=== PATIENT | born 1990 | race Caucasian/White ===

== ENCOUNTER 2025-05-18 17:39 | Emergency (ER) | payer SELFPAY ==
[2025-05-18] VITALS (10 sets, daily range): BP systolic 117–136; BP diastolic 47–78; PULSE 80–98; RESP 13–28; TEMP 37.2; O2SAT 98–100
--- NOTE | 2025-05-18 17:30 | RT.EKG_ITS ---
APPROVED REPORT Exam: Resting ECG Reason for Exam: chest pain Patient Location: E HR:76 bpm ECG Measurements Heart Rate 76 AXIS AL 123 P 61 QRSd 82 QRS 80 QT 345 T 68 QTc 390 Conclusion Sinus rhythm, rate 76 No interval abnormalities No STEMI No priors available for comparison
[2025-05-18 18:15] LABS: Abs Immature Grans 0.05 10^3/uL; HCT 39.7 %; HGB 12.9 g/dL; Immature Grans % 0.5 %; MCH 26.9 pg; MCHC 32.5 %; MCV 83 fL; MPV 9.2 fL; Platelet Count 224 10^3/uL; RBC 4.79 10^6/uL; RDW 14.2 %; RDW-SD 43.3 fL; WBC 10.59 10^3/uL
--- NOTE | 2025-05-18 18:15 | DI.RAD_ITS ---
Exam(s) XR CHEST 2V PA LATERAL EXAM: XR CHEST 2V PA LATERAL CLINICAL HISTORY: chest pain TECHNIQUE: 2D digital imaging was performed. Two views. COMPARISON: No exams were available for comparison FINDINGS: HEART: Normal size. Aorta: Not dilated. PULMONARY VASCULATURE: Normal. MEDIASTINUM: Unremarkable. LUNGS: Clear. PLEURAL SPACE: No pleural effusion or pneumothorax. BONE:Unremarkable for age. SOFT TISSUES: Unremarkable. IMPRESSION: No acute abnormality. DATA REPOSITORY: RADIATION DOSE DELIVERED:
[2025-05-18 18:30] LABS: Lipase 26 U/L
[2025-05-18] MEDS: Normal Saline 1,000 ML 1000 ML IV (18:30)
[2025-05-18] MEDS: Ondansetron 4 MG/2 ML VIAL IVP (18:31)
[2025-05-18] MEDS: Ketorolac 15 MG/ML VIAL 7.5 MG IVP (18:31)
[2025-05-18 18:32] LABS: ALT 96 U/L; AST 67 U/L; Albumin 4.1 g/dL; Alkaline Phosphatase 49 U/L; Anion Gap 7.3 mmol/L; BUN 14 mg/dL; Bilirubin, Total 0.30 mg/dL; CO2 28.7 mmol/L; Calcium 9.6 mg/dL; Chloride 108 mmol/L; Glucose 111 mg/dL; Potassium 3.7 mmol/L; Sodium 144 mmol/L; Total Protein 6.8 g/dL
[2025-05-18 18:34] LABS: Troponin I < 3 ng/L
[2025-05-18] MEDS: Buprenorphine/Naloxone 4 mg/1 mg FILM 1 EACH SL ×2 (19:34→20:44)
[2025-05-18 19:36] LABS: Troponin I < 3 ng/L
[2025-05-18 20:09] LABS: Cannabinoids THC Negative (Negative)
[2025-05-18] MEDS: cloNIDine 0.1 MG TAB PO (21:14)
[2025-05-18] MEDS: Ondansetron O.D.T. 4 MG TABEF, 3 TABS/BTL PO (21:14)
[2025-05-18] MEDS: Acetaminophen 325 MG TAB 650 MG PO (21:14)
--- NOTE | 2025-05-18 22:36 | ED.GENADUL_ITS ---
Discharge Plan Disposition Patient Disposition: Home Discharge Details Clinical Impression: Acute opioid withdrawal, Chest pain Primary Care Provider: None,None ED Provider: Aniyah Powell Discharge Instructions Instructions: Chest Pain (DC) Additional Instructions: Please go to the [facility] clinic tomorrow morning in [place] You received a milligrams of Suboxone in the emergency department this evening You also received a dose of clonidine which will help with withdrawal and Zofran which is for nausea and vomiting He received Toradol and Tylenol which will help with pain Please be reevaluated with any new or worsening complaints Stand Alone Forms: Portal Information Referrals: matthias [Other] [facility] [Outside] [facility] [Outside] [facility] General Date/Time Provider Initiated Documentation: 05/18/25 17:41 . HPI Narrative: This 34-year-old male presents harassed when released from incarceration 1 hour prior to arrival in the emergency department with report of chest pain and bodyaches. He states he feels anxious and restless. He has been approximately 48 hours sober from fentanyl. He states he was previously buying methadone on the street at has not actually been prescribed methadone in the past. He has previously been on Suboxone. He denies cocaine use over the past 2 weeks. He denies any shortness of breath or vomiting but he has been very nauseous. Denies any fever or chills. Denies calf pain or swelling. Denies known exacerbating or alleviating factors. General Stated Complaint: Chest Pain JAS: 3 Exam Narrative Exam Narrative: Alert?disheveled wounds 34-year-old male, pupils equal round reactive to light and accommodation answering questions appropriately although anxious, reproducible chest pain without visible sign of trauma, no murmur currently. Lungs clear to auscultation no abdominal tenderness. Distal pulses intact, no calf swelling or tenderness. Course Vital Signs Vital signs: Vital Signs Temperature 37.2 C 05/18/25 17:34 Pulse 97 05/18/25 17:34 Respiratory Rate 27 05/18/25 17:34 Blood Pressure 121/78 05/18/25 17:34 Pulse Oximetry 98 05/18/25 17:34 Temperature 37.2 C 05/18/25 17:34 Temperature Source Oral 05/18/25 17:34 Pulse 88 05/18/25 18:31 Pulse 93 05/18/25 18:20 Respiratory Rate 18 05/18/25 18:56 Respiratory Effort Normal 05/18/25 18:56 Respiratory Depth Normal 05/18/25 18:56 Respiratory Pattern Normal 05/18/25 18:56 Blood Pressure 132/71 05/18/25 18:30 Blood Pressure Mean 90 05/18/25 18:30 Pulse Oximetry 99 05/18/25 18:31 Oxygen Delivery Method Room Air 05/18/25 17:34 Oxygen Flow Rate 0 05/18/25 17:34 Pain Level 6 05/18/25 17:34 Lab/Test Results Lab/Test Results: Laboratory Tests Range/Units 05/18/25 05/18/25 05/18/25 18:10 19:01 19:37 WBC 10^3/uL 10.59 RBC 10^6/uL 4.79 Hgb g/dL 12.9 Hct % 39.7 MCV fL 83 MCH pg 26.9 MCHC % 32.5 RDW % 14.2 Plt Count 10^3/uL 224 MPV fL 9.2 Immature Gran % % 0.5 Neutrophils % % 83.1 Lymphocytes % % 12.3 Monocytes % % 3.1 Eosinophils % % 0.4 Basophils % % 0.6 Nucleated RBC % % 0.0 Absolute Neutrophils 10^3/uL 8.81 Absolute Lymphocytes 10^3/uL 1.30 Absolute Monocytes 10^3/uL 0.33 Absolute Eosinophils 10^3/uL 0.04 Absolute Basophils 10^3/uL 0.06 Sodium mmol/L 144 Potassium mmol/L 3.7 Chloride mmol/L 108 Carbon Dioxide mmol/L 28.7 Anion Gap mmol/L 7.3 BUN mg/dL 14 Creatinine mg/dL 0.75 Est GFR (CKD-EPI 2020) 0.00 Glucose mg/dL 111 Calcium mg/dL 9.6 Total Bilirubin mg/dL 0.30 AST U/L 67 ALT U/L 96 Alkaline Phosphatase U/L 49 Troponin I ng/L < 3 < 3 Total Protein g/dL 6.8 Albumin g/dL 4.1 Lipase U/L 26 Urine Opiates Screen (Negative) Negative Urine Methadone Screen (Negtative) Negative Ur Barbiturates Screen (Negative) Negative Ur Tricyclics Screen (Negtive) Negative Ur Amphetamines Screen (Negative) Negative U Benzodiazepines Scrn (Negative) Negative Urine Cocaine Screen (Negative) Positive A U Cannabinoids Screen (Negative) Negative Medical Decision Making Results: Troponins negative x 2 CBC and chemistry within normal limits, chest x- ray per radiology interpretation on my review does not show acute abnormality Assessment and plan: Patient presenting with chest pain, acute discomfort and appears to be in opiate withdrawal. COWS score of 19. Patient given to 4 mg films of Suboxone with mild improvement, clonidine 0.1 mg, Zofran, Toradol, and Tylenol for discomfort. He now has a ride and is requesting discharge home I think this is reasonable. He is encouraged to go to the [facility] tomorrow as he lives in [place] and has access to [facility]. [facility] ([place], [place]) recovery. While there is a risk of coronary vasospasm with cocaine he and patient is cocaine positive, he has a negative troponin and his pain has improved. I suspect his symptoms are largely related to opiate withdrawal maintenance given a month #12 trial return should he have new or worsening complaints. PFSH All Active Problems (Updated 05/18/25 @ 21:03 by ABIGAIL Sellers) Chest pain (Acute) Acute opioid withdrawal (Acute) Social History Smoking/Tobacco Use Status: Current every day Tobacco Type: cigarettes Smoking risk assessment performed?: Yes Alcohol Intake: former Substance use type: opiates and IV drugs Details: patient has been buying methadone on the streets
== END 2025-05-18 21:05 | disposition home or self-care (01) ==
PROVIDERS: Emergency Provider Physician Assistant
DX: F11.93 Opioid use, unspecified with withdrawal (principal); R07.9 Chest pain, unspecified
CPT/HCPCS: 99284; 99285; 36415; 96374; 96375; 96376; 80053; 80307; 83690; 93005; 96361; 71046; 84484; 85025; 93010; J1885; J2405